=== PATIENT | female | born 1970 | race Caucasian/White ===

== ENCOUNTER 2021-06-08 22:04 | Inpatient (IN) | payer OTHER, SELFPAY ==
--- NOTE | ~2021-06-08 | CT_ITS ---
EXAMINATION: CT ANGIOGRAM OF THE CHEST WITH AND WITHOUT CONTRAST (CT PULMONARY ANGIOGRAM FOR PE) CLINICAL INFORMATION: Reason for Exam covid + worsening SOB COMPARISON: None TECHNIQUE: Prior to contrast administration, noncontrast localization images were obtained. Subsequently, multidetector volumetric imaging was performed from the thoracic inlet to below the diaphragms following the administration of 65 mL Omnipaque 350 intravenous contrast. No contrast reaction reported Sagittal, coronal, and MIP oblique sagittal reformatted images were obtained on the CT workstation, uploaded to PACS, and reviewed. This CT examination was performed using dose optimization techniques as appropriate, variously including the following: *Automated exposure control *Adjustment of mA and/or kV according to patient size (this includes techniques or standardized protocols for targeted exams where dose is matched to indication/reason for exam; i.e. extremities or head) *Use of iterative reconstruction technique Total exam dose-length product 329 mGy-cm FINDINGS: QUALITY OF STUDY/CONTRAST BOLUS: Satisfactory. PULMONARY ARTERIES: No central or segmental pulmonary emboli. THORACIC AORTA: No aneurysm or dissection. LUNG: There are bilateral peripherally predominant patchy round glass opacities. PLEURA: No pleural effusion or pneumothorax. MEDIASTINUM: Normal heart size. No pericardial effusion. No hilar or mediastinal lymphadenopathy. No evidence of septal bowing or right heart strain. CHEST WALL/AXILLA: No axillary or internal mammary lymphadenopathy. OSSEOUS STRUCTURES: No acute or suspicious osseous abnormality. UPPER ABDOMEN: Hepatic steatosis. CT/CT angio chest PE protocol IMPRESSION: * No pulmonary embolism. * Bilateral peripherally predominant patchy groundglass airspace opacities. Pattern and appearance classic for COVID pneumonitis, mild. * Hepatic steatosis. VTE: negative
[2021-06-09] VITALS (13 sets, daily range): BP systolic 104–124; BP diastolic 55–67; PULSE 61–91; RESP 17–23; TEMP 36.1–39.6; O2SAT 88–98; BMI 29.4
--- NOTE | 2021-06-09 00:11 | ECG_ITS ---
Test Reason : SOB Blood Pressure : / mmHG Vent. Rate : 093 BPM Atrial Rate : 093 BPM P-R Int : 150 ms QRS Dur : 072 ms QT Int : 330 ms P-R-T Axes : 043 -06 039 degrees QTc Int : 410 ms Normal sinus rhythm Minimal voltage criteria for LVH, may be normal variant ( R in aVL ) Borderline ECG No previous ECGs available Referred By: Annamarie Freeman Electronically Signed By:Abiodun Ho
--- NOTE | 2021-06-09 00:16 | ED_ITS ---
HPI - General Adult General Chief complaint: Upper Respiratory Symptoms Stated complaint: Low O2/Difficulty breathing Time Seen by Provider: 06/09/21 00:03 Source: patient Mode of arrival: ambulatory Limitations: no limitations History of Present Illness HPI narrative: Patient comes to emergency room complaining of shortness of breath, worsening cough. Patient states she was diagnosed with COVID approximately 1 week ago. Patient complaining of vomiting, no diarrhea. Complaining of generalized malaise Related Data Allergies Allergy/AdvReac Type Severity Reaction Status Date / Time No Known Allergies Allergy Verified 06/09/21 00:10 Review of Systems Review of Systems: Constitutional : No Weight loss, complaining of fever, chills, generalized malaise and fatigue ENT/Mouth : No Hearing loss, No Ear Pain, No Nasal Congestion, No Sinus Pain, No Hoarseness, No sore throat, No Rhinorrhea, No Swallowing Difficulty Eyes: No Eye Pain, No Swelling, No Redness, No Foreign Body, No Discharge, No Vision Changes Cardiovascular : Complaining of chest pain with coughing, no orthopnea no palpitations no edema Respiratory : Complaining of Cough, No Sputum, No Wheezing, No Smoke Exposure, complaining of worsening Dyspnea Gastrointestinal : Complaining of nausea and vomiting, No Diarrhea, No Constipation, No abdominal Pain, No Hematochezia, No Melena Genitourinary : no irregular bleeding, No Dysuria, No Urinary Frequency, No Hematuria, No Urinary Incontinence, No Urgency, No Flank Pain, No Urinary Flow Changes, No Hesitancy Musculoskeletal : No joint pain, complaining of diffuse Myalgias, No Joint Swelling Skin : No Skin Lesions, No rash Neuro : No Weakness, No Numbness, No Paresthesias, No Loss of Consciousness, No Dizziness, No Headache Psych : No Anxiety/Panic, No Depression, No SI/HI/AH/VH, No Social Issues, Heme/Lymph: No Bruising, No Bleeding,No Lymphadenopathy Endocrine : No Polyuria, No Polydipsia, No Temperature Intolerance [facility] Past Medical History Medical History (Updated 06/09/21 @ 00:19 by Annamarie Freeman MD) Hypertension Type 2 diabetes mellitus Social History Social History Patient Tobacco Use Status: Never used Tobacco Use of substances other than those prescribed or required for medical reasons: No Advance Directives: No Physical Exam Vital Signs: Vital Signs: Last Vital Signs Temp 100.2 F 06/09/21 02:42 Pulse 82 12/07/21 02:42 Resp 19 06/09/21 02:42 BP 107/55 L 06/09/21 02:42 Pulse Ox 95 06/09/21 02:42 Oxygen Flow Rate 2 06/09/21 02:34 BMI result Body Mass Index 29.4 Const: Other: Appearance: Alert. Oriented X3. Ill-appearing Eyes: Pupils equal, round and reactive to light. ENT: Pharynx normal. Neck: Normal inspection. Neck supple. No lymph nodes noted. No crepitus CVS: Normal heart rate and rhythm. Pulses normal. Normal S1 and S2 Respiratory: No respiratory distress. Breath sounds normal. No Wheezing. No rales Abdomen: Soft and nontender. No rigidity. No distention. Skin: Skin very warm to touch. Normal skin color. Normal skin turgor. Extremities: No lower extremity edema. No Lacerations. No Rash Neuro: Oriented X 3. No motor deficit. No sensory deficit. Moving all extermities. No slurred speech. Course Course Course Narrative: Patient's oxygen saturation drops to 87% on room air with exertion. Patient was given Decadron, at this time no suspicion of pneumonia or sepsis CT study for PE does not show pulmonary embolism. I discussed the patient with Dr. Reed, patient being admitted. Medical Decision Making Lab Data Result diagrams: 06/09/21 00:47 06/09/21 00:47 Labs: Lab Results 06/09/21 06/09/21 06/09/21 Range/Units 00:47 00:47 00:47 WBC 8.2 (4.8-10.8) X10*3/uL RBC 4.18 L (4.20-5.50) X10*6/uL Hgb 12.0 (12.0-16.0) g/dl Hct 36.4 L (37.0-47.0) % MCV 87.1 (80.0-98.0) fL MCH 28.7 (27.0-33.0) pg MCHC 33.0 (31.0-35.0) g/dl RDW 11.8 (11.0-16.0) % Plt Count 322 (160-400) X10*3/uL MPV 9.1 L (9.4-12.3) fL Immature Gran % (Auto) 0.4 (0.0-0.4) % Neut % (Auto) 87.5 H (45-73) % Lymph % (Auto) 10.1 L (20-40) % [place] % (Auto) 1.9 L (2-11) % Eos % (Auto) 0.0 (0-4) % Baso % (Auto) 0.1 (0-2) % Lymph # (Auto) 0.8 L (1.2-4.9) X10*3/uL [place] # (Auto) 0.2 (0.1-1.2) X10*3/uL Eos # (Auto) 0.0 (0.0-0.4) X10*3/uL Baso # (Auto) 0.0 (0.0-0.2) X10*3/uL Abs Immat Gran (auto) 0.03 (0.00-0.03) X10*3/uL Absolute Neuts (auto) 7.2 (2.0-8.3) x10*3/uL Absolute Nucleated RBC 0.000 (0.0-0.012) X10*3/uL Nucleated RBC % (auto) 0.0 (0.0-0.2) /100WBC Smear Tech's Comments VERIFIED PT 13.4 H (9.9-13.0) SEC INR 1.2 H (0.9-1.1) D-Dimer High Sensitivty 380 NG/ML Sodium 137 (135-145) mmol/L Potassium 4.6 (3.3-5.1) mmol/L Chloride 101 (96-108) mmol/L Carbon Dioxide 23 (22-29) mmol/L Anion Gap 18 (12-20) BUN 14 (9-16) mg/dL Creatinine 0.71 (0.5-1.4) mg/dL Estim Creat Clear Calc 87.6 Estimated GFR > 60 POC Glucose (60-115) mg/dL Random Glucose 167 H (60-115) mg/dL Lactic Acid (0.5-2.0) mmol/L Calcium 8.7 (8.4-10.2) mg/dL Total Bilirubin 0.6 (0.0-1.0) mg/dL Direct Bilirubin 0.2 (0.0-0.5) mg/dL AST 31 (5-31) U/L ALT 20 (0-31) U/L Alkaline Phosphatase 83 (39-117) U/L Troponin I High Sens (<3.5-17.0) ng/L B-Natriuretic Peptide (<100) pg/mL Total Protein 7.3 (6.5-8.0) g/dL Albumin 3.7 (3.5-5.0) g/dL Urine Color Urine Appearance Urine pH (5.0-8.0) Ur Specific [place] (1.005-1.025) Urine Protein (NEG-TRACE) MG/DL Urine Glucose (UA) (NEG) MG/DL Urine Ketones (NEG) MG/DL Urine Blood (NEG) Urine Nitrite (NEG) Ur Leukocyte Esterase (NEG) Urine RBC (0) /HPF Urine WBC (0-4) /HPF Ur Squamous Epith Cells /LPF Urine Bacteria /LPF COVID-19 ([facility]) (Negative) COVID-19 Clin Com 06/09/21 06/09/21 06/09/21 Range/Units 00:47 00:47 00:47 WBC (4.8-10.8) X10*3/uL RBC (4.20-5.50) X10*6/uL Hgb (12.0-16.0) g/dl Hct (37.0-47.0) % MCV (80.0-98.0) fL MCH (27.0-33.0) pg MCHC (31.0-35.0) g/dl RDW (11.0-16.0) % Plt Count (160-400) X10*3/uL MPV (9.4-12.3) fL Immature Gran % (Auto) (0.0-0.4) % Neut % (Auto) (45-73) % Lymph % (Auto) (20-40) % [place] % (Auto) (2-11) % Eos % (Auto) (0-4) % Baso % (Auto) (0-2) % Lymph # (Auto) (1.2-4.9) X10*3/uL [place] # (Auto) (0.1-1.2) X10*3/uL Eos # (Auto) (0.0-0.4) X10*3/uL Baso # (Auto) (0.0-0.2) X10*3/uL Abs Immat Gran (auto) (0.00-0.03) X10*3/uL Absolute Neuts (auto) (2.0-8.3) x10*3/uL Absolute Nucleated RBC (0.0-0.012) X10*3/uL Nucleated RBC % (auto) (0.0-0.2) /100WBC Smear Tech's Comments PT (9.9-13.0) SEC INR (0.9-1.1) D-Dimer High Sensitivty NG/ML Sodium (135-145) mmol/L Potassium (3.3-5.1) mmol/L Chloride (96-108) mmol/L Carbon Dioxide (22-29) mmol/L Anion Gap (12-20) BUN (9-16) mg/dL Creatinine (0.5-1.4) mg/dL Estim Creat Clear Calc Estimated GFR POC Glucose (60-115) mg/dL Random Glucose (60-115) mg/dL Lactic Acid 0.9 (0.5-2.0) mmol/L Calcium (8.4-10.2) mg/dL Total Bilirubin (0.0-1.0) mg/dL Direct Bilirubin (0.0-0.5) mg/dL AST (5-31) U/L ALT (0-31) U/L Alkaline Phosphatase (39-117) U/L Troponin I High Sens < 3.5 (<3.5-17.0) ng/L B-Natriuretic Peptide < 10 (<100) pg/mL Total Protein (6.5-8.0) g/dL Albumin (3.5-5.0) g/dL Urine Color Urine Appearance Urine pH (5.0-8.0) Ur Specific [place] (1.005-1.025) Urine Protein (NEG-TRACE) MG/DL Urine Glucose (UA) (NEG) MG/DL Urine Ketones (NEG) MG/DL Urine Blood (NEG) Urine Nitrite (NEG) Ur Leukocyte Esterase (NEG) Urine RBC (0) /HPF Urine WBC (0-4) /HPF Ur Squamous Epith Cells /LPF Urine Bacteria /LPF COVID-19 ([facility]) Positive A (Negative) COVID-19 Clin Com See Note 06/09/21 06/09/21 Range/Units 01:36 01:48 WBC (4.8-10.8) X10*3/uL RBC (4.20-5.50) X10*6/uL Hgb (12.0-16.0) g/dl Hct (37.0-47.0) % MCV (80.0-98.0) fL MCH (27.0-33.0) pg MCHC (31.0-35.0) g/dl RDW (11.0-16.0) % Plt Count (160-400) X10*3/uL MPV (9.4-12.3) fL Immature Gran % (Auto) (0.0-0.4) % Neut % (Auto) (45-73) % Lymph % (Auto) (20-40) % [place] % (Auto) (2-11) % Eos % (Auto) (0-4) % Baso % (Auto) (0-2) % Lymph # (Auto) (1.2-4.9) X10*3/uL [place] # (Auto) (0.1-1.2) X10*3/uL Eos # (Auto) (0.0-0.4) X10*3/uL Baso # (Auto) (0.0-0.2) X10*3/uL Abs Immat Gran (auto) (0.00-0.03) X10*3/uL Absolute Neuts (auto) (2.0-8.3) x10*3/uL Absolute Nucleated RBC (0.0-0.012) X10*3/uL Nucleated RBC % (auto) (0.0-0.2) /100WBC Smear Tech's Comments PT (9.9-13.0) SEC INR (0.9-1.1) D-Dimer High Sensitivty NG/ML Sodium (135-145) mmol/L Potassium (3.3-5.1) mmol/L Chloride (96-108) mmol/L Carbon Dioxide (22-29) mmol/L Anion Gap (12-20) BUN (9-16) mg/dL Creatinine (0.5-1.4) mg/dL Estim Creat Clear Calc Estimated GFR POC Glucose 145 H (60-115) mg/dL Random Glucose (60-115) mg/dL Lactic Acid (0.5-2.0) mmol/L Calcium (8.4-10.2) mg/dL Total Bilirubin (0.0-1.0) mg/dL Direct Bilirubin (0.0-0.5) mg/dL AST (5-31) U/L ALT (0-31) U/L Alkaline Phosphatase (39-117) U/L Troponin I High Sens (<3.5-17.0) ng/L B-Natriuretic Peptide (<100) pg/mL Total Protein (6.5-8.0) g/dL Albumin (3.5-5.0) g/dL Urine Color YELLOW Urine Appearance CLEAR Urine pH 6.5 (5.0-8.0) Ur Specific [place] 1.010 (1.005-1.025) Urine Protein NEG (NEG-TRACE) MG/DL Urine Glucose (UA) >=1000 H (NEG) MG/DL Urine Ketones 40 (NEG) MG/DL Urine Blood NEG (NEG) Urine Nitrite NEG (NEG) Ur Leukocyte Esterase NEG (NEG) Urine RBC 1-4 (0) /HPF Urine WBC 1-4 (0-4) /HPF Ur Squamous Epith Cells 1+ /LPF Urine Bacteria 1+ /LPF COVID-19 ([facility]) (Negative) COVID-19 Clin Com Imaging Data CTA for PE: Radiologist's impression: FINDINGS: QUALITY OF STUDY/CONTRAST BOLUS: Satisfactory. PULMONARY ARTERIES: No central or segmental pulmonary emboli.? THORACIC AORTA: No aneurysm or dissection. LUNG: There are bilateral peripherally predominant patchy round glass opacities. PLEURA: No pleural effusion or pneumothorax. MEDIASTINUM: Normal heart size.? No pericardial effusion.? No hilar or mediastinal lymphadenopathy.? No evidence of septal bowing or right heart strain. CHEST WALL/AXILLA: No axillary or internal mammary lymphadenopathy. OSSEOUS STRUCTURES: No acute or suspicious osseous abnormality.? UPPER ABDOMEN: Hepatic steatosis. CT/CT angio chest PE protocol IMPRESSION: *? No pulmonary embolism. *? Bilateral peripherally predominant patchy groundglass airspace opacities. Pattern and appearance classic for COVID pneumonitis, mild. *? Hepatic steatosis. ? VTE: negative Discharge Plan Discharge Clinical Impression: COVID-19, Hypoxia Patient Disposition: Admitted As Inpatient
[2021-06-09] MEDS: 0.9 % Sodium Chloride 1,000 ML 999 ML IVCONT (00:46)
[2021-06-09] MEDS: ondansetron HCL 4 MG/2 ML VIAL IVPUSH (00:46)
[2021-06-09 01:00] LABS: Basophils Percent Auto 0.1 % (0-2); Hematocrit 36.4 % (37.0-47.0); Imm Gran Abs Auto 0.03 X10*3/uL (0.00-0.03); Imm Gran Pct Auto 0.4 % (0.0-0.4); Lymphocytes Absolute Auto 0.8 X10*3/uL (1.2-4.9); Lymphocytes Percent Auto 10.1 % (20-40); MANUAL DIFF FLAG SCAN; Mean Corpuscular Hemoglobin 28.7 pg (27.0-33.0); Mean Corpuscular Volume 87.1 fL (80.0-98.0); Mean Platelet Volume 9.1 fL (9.4-12.3); Monocytes Absolute Auto 0.2 X10*3/uL (0.1-1.2); Monocytes Percent Auto 1.9 % (2-11); Neutrophils Absolute Auto 7.2 x10*3/uL (2.0-8.3); Neutrophils Percent Auto 87.5 % (45-73); Platelet Count 322 X10*3/uL (160-400); Red Blood Count 4.18 X10*6/uL (4.20-5.50); Red Cell Distribution Width 11.8 % (11.0-16.0); SCAN SMEAR FLAG 1; White Blood Count 8.2 X10*3/uL (4.8-10.8)
[2021-06-09 01:05] LABS: INTERNATIONAL NORM RATIO 1.2 (0.9-1.1); Prothrombin Time 13.4 SEC (9.9-13.0)
[2021-06-09 01:07] LABS: D Dimer High Sensitivity 380 NG/ML
[2021-06-09 01:11] LABS: Lactic Acid 0.9 mmol/L (0.5-2.0)
[2021-06-09 01:16] LABS: Alanine Aminotransferase 20 U/L (0-31); Albumin Level 3.7 g/dL (3.5-5.0); Alkaline Phosphatase 83 U/L (39-117); Anion Gap 18 (12-20); Aspartate Amino Transferase 31 U/L (5-31); Bilirubin Direct 0.2 mg/dL (0.0-0.5); Bilirubin Total 0.6 mg/dL (0.0-1.0); Blood Urea Nitrogen 14 mg/dL (9-16); Calcium 8.7 mg/dL (8.4-10.2); Carbon Dioxide 23 mmol/L (22-29); Chloride 101 mmol/L (96-108); Creatinine Clr Calc Pharmacy 87.6; Estimated Glomerular Filt Rate > 60; Glucose Random 167 mg/dL (60-115); Potassium 4.6 mmol/L (3.3-5.1); Sodium 137 mmol/L (135-145); Total Protein 7.3 g/dL (6.5-8.0)
[2021-06-09 01:20] LABS: B Type Natriuretic Peptide < 10 pg/mL (<100); Troponin-I High Sensitivity < 3.5 ng/L (<3.5-17.0)
[2021-06-09] MEDS: Acetaminophen 325 MG TABLET 650 MG PO ×2 (01:20→16:53)
[2021-06-09 01:23] LABS: SLIDE REVIEW VERIFIED
[2021-06-09 01:25] LABS: COVID-19 Test Positive (Negative)
[2021-06-09 01:48] LABS: Glucose, Whole Blood 145 mg/dL (60-115)
[2021-06-09 01:55] LABS: Appearance Urine CLEAR; Color Urine YELLOW; Glucose Urine UA >=1000 MG/DL (NEG); Leukocyte Esterase Urine NEG (NEG); Nitrite Urine NEG (NEG); PH 6.5 (5.0-8.0); Urine Blood NEG (NEG); Urine Ketones 40 MG/DL (NEG); Urine Protein NEG (NEG-TRACE)
[2021-06-09 02:05] LABS: Bacteria Urine 1+ /LPF; Squamous Epithelial Cell Urine 1+ /LPF
[2021-06-09] MEDS: iohexoL 350 MG/ML 100 ML INFUS..BTL 65 ML IV (02:34)
--- NOTE | 2021-06-09 03:19 | P.HPHOSP_ITS ---
History of Present Illness Date of Service: 06/09/21 Chief Complaint: shortness of breath 50-year-old female with a past medical history of hypertension, hyperlipidemia, diabetes presented to the hospital with a chief complaint of shortness of breath. Patient reported that she was COVID-19 positive about 1 week ago; has been doing well but lately has been becoming more and more short of breath, generalized w eakness and vomiting; denies any diarrhea; denies any abdominal pain. Mentioned she has more shortness of breath on exertion. Complains of dry cough. Denies any foreign production. Denies any numbness tingling or focal weakness. Denies any chest pain palpitations lightheadedness. Denies any urinary symptoms. Review of all other systems is negative except mentioned above ER course: Per ER team noted that the patient is hypoxic to 87% on room air; CT chest showed no evidence of pulmonary embolism; given dexamethasone. Admitted to the hospital for further management. [facility] Medical History (Updated 06/09/21 @ 03:20 by Onofre Reed MD) Hypertension Type 2 diabetes mellitus Pertinent family history: reviewed Social History Patient Tobacco Use Status: Never used Tobacco Use of substances other than those prescribed or required for medical reasons: No Advance Directives: No Meds Allergies Allergy/AdvReac Type Severity Reaction Status Date / Time No Known Allergies Allergy Verified 06/09/21 00:10 Active Medications: Current Medications Acetaminophen (Acetaminophen 325 Mg Tablet) 650 mg PO Q6H PRN PRN Reason: Pain, Mild (Pain Scale 1-3) Dexamethasone (Dexamethasone 6 Mg Tablet) 6 mg PO DAILY [facility] Dextrose (Dextrose 50 % 25 Gm/50 Ml Vial) 25 gm IVPUSH Q15M PRN; Protocol PRN Reason: per Hypoglycemia Standing Ord. Enoxaparin Sodium (Enoxaparin Sodium 40 Mg/0.4 Ml Syringe) 40 mg SUBCUT Q24H NAOMIE Famotidine (Famotidine 20 Mg Tablet) 20 mg PO BID NAOMIE Glucose (Glucose Gel 15 Gm Gel..Gram.) 15 gm PO Q15M PRN; Protocol PRN Reason: per Hypoglycemia Standing Ord. Insulin Human Lispro (Insulin Lispro 100 Unit/Ml 3 Ml Vial) 0 unit SUBCUT QIDACHS NAOMIE; Protocol Melatonin (Melatonin 3 Mg Tablet) 6 mg PO BEDTIME PRN PRN Reason: Insomnia Morphine Sulfate (Morphine Sulfate 4 Mg/Ml Cartridge) 1 mg IVPUSH Q4H PRN; Protocol PRN Reason: Pain, SOB Senna (Sennosides 8.6 Mg Tablet) 17.2 mg PO BEDTIME PRN PRN Reason: Constipation Sodium Chloride (0.9 % Sodium Chloride Flush 3 Ml Syringe) 3 ml IVFLUSH QSHIFT NAOMIE Physical Exam Vital Signs and Narrative: Vital Signs: Last Vital Signs Temp 100.2 F 06/09/21 02:42 Pulse 80 06/09/21 03:14 Resp 18 06/09/21 03:14 BP 104/55 L 06/09/21 03:14 Pulse Ox 94 06/09/21 03:14 Oxygen Flow Rate 2 06/09/21 02:34 BMI result Body Mass Index 29.4 Gen: Appears be in no acute distress. speaks in full sentences. Not in respiratory distress. On supplemental oxygen. Saturating 94% on 2 L. HEENT: NCAT, Moist mucosa. Pulmonary: Coarse breath sounds, fair air entry CVS: Normal S1-S2 Abdomen: BS+, Soft, Nontender Extremities: Warm well perfused Neuro: Alert and awake. Results Labs CBC and Chem 7: 06/09/21 00:47 06/09/21 00:47 Labs: Laboratory Results - last 24 hr 06/09/21 06/09/21 06/09/21 00:47 00:47 00:47 MCV 87.1 MCH 28.7 MCHC 33.0 RDW 11.8 Plt Count 322 MPV 9.1 L Immature Gran % (Auto) 0.4 Neut % (Auto) 87.5 H Lymph % (Auto) 10.1 L [place] % (Auto) 1.9 L Eos % (Auto) 0.0 Baso % (Auto) 0.1 Lymph # (Auto) 0.8 L [place] # (Auto) 0.2 Eos # (Auto) 0.0 Baso # (Auto) 0.0 Abs Immat Gran (auto) 0.03 Absolute Neuts (auto) 7.2 Absolute Nucleated RBC 0.000 Nucleated RBC % (auto) 0.0 Smear Tech's Comments VERIFIED PT 13.4 H INR 1.2 H D-Dimer High Sensitivty 380 Anion Gap 18 Estim Creat Clear Calc 87.6 Estimated GFR > 60 POC Glucose Random Glucose 167 H Lactic Acid Calcium 8.7 Total Bilirubin 0.6 Direct Bilirubin 0.2 AST 31 ALT 20 Alkaline Phosphatase 83 Troponin I High Sens B-Natriuretic Peptide Total Protein 7.3 Albumin 3.7 Urine Color Urine Appearance Urine pH Ur Specific [place] Urine Protein Urine Glucose (UA) Urine Ketones Urine Blood Urine Nitrite Ur Leukocyte Esterase Urine RBC Urine WBC Ur Squamous Epith Cells Urine Bacteria COVID-19 ([facility]) COVID-19 Clin Com 06/09/21 06/09/21 06/09/21 00:47 00:47 00:47 MCV MCH MCHC RDW Plt Count MPV Immature Gran % (Auto) Neut % (Auto) Lymph % (Auto) [place] % (Auto) Eos % (Auto) Baso % (Auto) Lymph # (Auto) [place] # (Auto) Eos # (Auto) Baso # (Auto) Abs Immat Gran (auto) Absolute Neuts (auto) Absolute Nucleated RBC Nucleated RBC % (auto) Smear Tech's Comments PT INR D-Dimer High Sensitivty Anion Gap Estim Creat Clear Calc Estimated GFR POC Glucose Random Glucose Lactic Acid 0.9 Calcium Total Bilirubin Direct Bilirubin AST ALT Alkaline Phosphatase Troponin I High Sens < 3.5 B-Natriuretic Peptide < 10 Total Protein Albumin Urine Color Urine Appearance Urine pH Ur Specific [place] Urine Protein Urine Glucose (UA) Urine Ketones Urine Blood Urine Nitrite Ur Leukocyte Esterase Urine RBC Urine WBC Ur Squamous Epith Cells Urine Bacteria COVID-19 ([facility]) Positive A COVID-19 Clin Com See Note 06/09/21 06/09/21 01:36 01:48 MCV MCH MCHC RDW Plt Count MPV Immature Gran % (Auto) Neut % (Auto) Lymph % (Auto) [place] % (Auto) Eos % (Auto) Baso % (Auto) Lymph # (Auto) [place] # (Auto) Eos # (Auto) Baso # (Auto) Abs Immat Gran (auto) Absolute Neuts (auto) Absolute Nucleated RBC Nucleated RBC % (auto) Smear Tech's Comments PT INR D-Dimer High Sensitivty Anion Gap Estim Creat Clear Calc Estimated GFR POC Glucose 145 H Random Glucose Lactic Acid Calcium Total Bilirubin Direct Bilirubin AST ALT Alkaline Phosphatase Troponin I High Sens B-Natriuretic Peptide Total Protein Albumin Urine Color YELLOW Urine Appearance CLEAR Urine pH 6.5 Ur Specific [place] 1.010 Urine Protein NEG Urine Glucose (UA) >=1000 H Urine Ketones 40 Urine Blood NEG Urine Nitrite NEG Ur Leukocyte Esterase NEG Urine RBC 1-4 Urine WBC 1-4 Ur Squamous Epith Cells 1+ Urine Bacteria 1+ COVID-19 ([facility]) COVID-19 Clin Com Imaging Radiologist's Impressions: Impressions Chest CTA 06/09/21 02:25 IMPRESSION: * No pulmonary embolism. * Bilateral peripherally predominant patchy groundglass airspace opacities. Pattern and appearance classic for COVID pneumonitis, mild. * Hepatic steatosis. VTE: negative Assessment and Plan (1) SARS-CoV-2 positive: Status: Acute (2) Hypoxia: Status: Acute (3) Type 2 diabetes mellitus: Status: Acute 50-year-old female with a past medical history of hypertension, hyperlipidemia, diabetes presented to the hospital with a chief complaint of shortness of breath. The patient was COVID-19 positive about 1 week ago. No hypoxic to 87% on room air. Admitted for further management. Acute hypoxic respiratory failure: In the setting of COVID-19 infection. Placed on supplemental oxygen. Not in respiratory distress. Supportive care. COVID-19 infection: Patient started on dexamethasone 6 mg daily. Will consult ID for further recommendations. History of hypertension: Patient's blood pressure on the soft side. Will hold home lisinopril. History of hyperlipidemia: Continue home atorvastatin History of diabetes: Insulin sliding scale DVT prophylaxis: Lovenox Code status: Full code Quality Stroke Does the patient have a stroke diagnosis?: No VTE Prior VTE?: No VTE Risk Level:: Medical - moderate - high VTE Device Contraindication: Treatment Not Indicated VTE Drug Contraindication: N/A - Med Ordered
[2021-06-09] MEDS: dexAMETHasone sod phosphate 4 MG/ML VIAL 6 MG IVPUSH (03:34)
[2021-06-09] MEDS: Morphine Sulfate 4 MG/ML CARTRIDGE 1 MG IVPUSH ×2 (03:56→08:02)
[2021-06-09] MEDS: Enoxaparin Sodium 40 MG/0.4 ML SYRINGE SUBCUT (03:57)
--- NOTE | 2021-06-09 04:01 | PC.NURSE ---
walk test, walking around in room desat. medicated per mar
[2021-06-09] MEDS: 0.9 % Sodium Chloride Flush 3 ML SYRINGE IVFLUSH ×3 (07:34→21:44)
[2021-06-09 07:39] LABS: Basophils Percent Auto 0.1 % (0-2); Hematocrit 36.8 % (37.0-47.0); Hemoglobin 11.9 g/dl (12.0-16.0); Imm Gran Abs Auto 0.04 X10*3/uL (0.00-0.03); Imm Gran Pct Auto 0.5 % (0.0-0.4); Lymphocytes Absolute Auto 1.1 X10*3/uL (1.2-4.9); Lymphocytes Percent Auto 13.5 % (20-40); MANUAL DIFF FLAG SCAN; Mean Corpuscular HGB Conc 32.3 g/dl (31.0-35.0); Mean Corpuscular Hemoglobin 28.9 pg (27.0-33.0); Mean Corpuscular Volume 89.3 fL (80.0-98.0); Monocytes Absolute Auto 0.1 X10*3/uL (0.1-1.2); Monocytes Percent Auto 1.6 % (2-11); Neutrophils Absolute Auto 6.8 x10*3/uL (2.0-8.3); Neutrophils Percent Auto 84.3 % (45-73); Platelet Count 332 X10*3/uL (160-400); Red Blood Count 4.12 X10*6/uL (4.20-5.50); Red Cell Distribution Width 11.9 % (11.0-16.0); SCAN SMEAR FLAG 1; White Blood Count 8.1 X10*3/uL (4.8-10.8)
[2021-06-09] MEDS: Famotidine 20 MG TABLET PO ×2 (07:40→21:44)
[2021-06-09] MEDS: Aspirin 81 MG TAB.CHEW PO (07:40)
[2021-06-09] MEDS: dexAMETHasone 6 MG TABLET PO (07:40)
[2021-06-09 07:45] LABS: Glucose, Whole Blood 142 mg/dL (60-115)
--- NOTE | 2021-06-09 07:52 | PC.NURSE ---
Spoke to daughter Yvonne (with permission of pt), updated on plan and status of pt. Med list obtained from daughter and faxed to pharmacy.
--- NOTE | 2021-06-09 07:55 | PHA.MEDREC ---
Pharmacy Consult ? Medication Reconciliation Pharmacy has completed the medication reconciliation.
[2021-06-09 08:02] LABS: Anion Gap 17 (12-20); Blood Urea Nitrogen 14 mg/dL (9-16); Calcium 8.4 mg/dL (8.4-10.2); Carbon Dioxide 22 mmol/L (22-29); Chloride 106 mmol/L (96-108); Creatinine Clr Calc Pharmacy 90.2; Estimated Glomerular Filt Rate > 60; Glucose Random 151 mg/dL (60-115); Potassium 4.8 mmol/L (3.3-5.1); Sodium 140 mmol/L (135-145)
--- NOTE | 2021-06-09 10:04 | PM.EVENT ---
Event Note Date of Service: 06/09/21 Event Note: Pt admitted this morning with covid with hypoxia, treatment plan per H and P from this morning. Wean O2 as tolerated
[2021-06-09 12:09] LABS: Glucose, Whole Blood 182 mg/dL (60-115)
[2021-06-09 14:50] LABS: Glucose, Whole Blood 236 mg/dL (60-115)
[2021-06-09] MEDS: Insulin Lispro 100 UNIT/ML 3 ML VIAL SUBCUT ×3 (14:53→21:44)
[2021-06-09 15:45] LABS: Glucose, Whole Blood 372 mg/dL (60-115)
[2021-06-09 19:00] LABS: Glucose, Whole Blood 355 mg/dL (60-115)
[2021-06-09 20:53] LABS: Glucose, Whole Blood 283 mg/dL (60-115)
[2021-06-09] MEDS: Atorvastatin Calcium 80 MG TABLET PO (21:44)
[2021-06-10] MEDS: Benzonatate 100 MG CAPSULE PO ×3 (01:49→20:38)
[2021-06-10 03:02] VITALS: BP 106/53; PULSE 71; RESP 16; TEMP 36.7; O2SAT 94
[2021-06-10] MEDS: Enoxaparin Sodium 40 MG/0.4 ML SYRINGE SUBCUT (06:14)
[2021-06-10 07:19] VITALS: BP 120/62; PULSE 82; RESP 22; TEMP 37.8; O2SAT 92
[2021-06-10 07:50] LABS: Glucose, Whole Blood 169 mg/dL (60-115)
[2021-06-10] MEDS: Aspirin 81 MG TAB.CHEW PO (08:14)
[2021-06-10] MEDS: Famotidine 20 MG TABLET PO ×2 (08:14→20:38)
[2021-06-10] MEDS: Insulin Lispro 100 UNIT/ML 3 ML VIAL SUBCUT ×4 (08:14→20:39)
[2021-06-10] MEDS: dexAMETHasone 6 MG TABLET PO (08:14)
[2021-06-10] MEDS: 0.9 % Sodium Chloride Flush 3 ML SYRINGE IVFLUSH ×2 (08:14→15:53)
[2021-06-10] MEDS: Acetaminophen 325 MG TABLET 650 MG PO ×2 (08:19→20:38)
[2021-06-10 10:29] VITALS: TEMP 37.6
[2021-06-10 10:54] VITALS: BP 119/64; PULSE 68; RESP 20; TEMP 37; O2SAT 95
[2021-06-10 11:18] LABS: Glucose, Whole Blood 224 mg/dL (60-115)
--- NOTE | 2021-06-10 11:30 | MHC.CM.PN ---
spoke with pt who is covid area via telephone pt explains that prior to admission she was independent lives with s/o she does mot expect to need service when dcd per rounds pt may be dcd tomorrow
--- NOTE | 2021-06-10 11:59 | HO.PM.IMPN ---
Subjective Subjective Date of Service: 06/10/21 Interval History: Seen in f/u for acute hypoxic respiratory failure due to covid, overall getting better still coughing alot, hypoxia seem better on just 2 liters Review of Systems No fever cough sob Physical Exam Vital Signs: Vital Signs: Last Vital Signs Temp 98.6 F 06/10/21 10:54 Pulse 68 06/10/21 10:54 Resp 20 06/10/21 10:54 BP 119/64 06/10/21 10:54 Pulse Ox 95 06/10/21 10:54 Oxygen Flow Rate 2 06/09/21 11:20 BMI result Body Mass Index 29.4 Const: Other: General: AO X 3, no acute distress Resp: CTA bilateral, no accessory muscle use CVS: S1,S2,RRR GI: +BS, NT, no distention Skin: No rash Neuro: motor grossly intact Psych: appropriate affect Objective Data Active Medications Acetaminophen (Acetaminophen 325 Mg Tablet) 650 mg PO Q6H PRN PRN Reason: Pain, Mild (Pain Scale 1-3) Last Admin: 06/10/21 08:19 Dose: 650 mg Documented by: SHADY Aspirin (Aspirin 81 Mg Tab.Chew) 81 mg PO DAILY [facility] Last Admin: 06/10/21 08:14 Dose: 81 mg Documented by: SHADY Atorvastatin Calcium (Atorvastatin Calcium 80 Mg Tablet) 80 mg PO BEDTIME [facility] Last Admin: 06/09/21 21:44 Dose: 80 mg Documented by: JAMI Benzonatate (Benzonatate 100 Mg Capsule) 100 mg PO TID PRN PRN Reason: Cough Last Admin: 06/10/21 11:57 Dose: 100 mg Documented by: SHADY Benzonatate (Benzonatate 100 Mg Capsule) 100 mg PO TID PRN PRN Reason: Cough Dexamethasone (Dexamethasone 6 Mg Tablet) 6 mg PO DAILY [facility] Last Admin: 06/10/21 08:14 Dose: 6 mg Documented by: SHADY Dextrose (Dextrose 50 % 25 Gm/50 Ml Vial) 25 gm IVPUSH Q15M PRN; Protocol PRN Reason: per Hypoglycemia Standing Ord. Enoxaparin Sodium (Enoxaparin Sodium 40 Mg/0.4 Ml Syringe) 40 mg SUBCUT Q24H [facility] Last Admin: 06/10/21 06:14 Dose: 40 mg Documented by: JAMI Famotidine (Famotidine 20 Mg Tablet) 20 mg PO BID [facility] Last Admin: 06/10/21 08:14 Dose: 20 mg Documented by: SHADY Glucose (Glucose Gel 15 Gm Gel..Gram.) 15 gm PO Q15M PRN; Protocol PRN Reason: per Hypoglycemia Standing Ord. Insulin Human Lispro (Insulin Lispro 100 Unit/Ml 3 Ml Vial) 0 [facility]; Protocol Last Admin: 06/10/21 11:51 Dose: 4 unit Documented by: SHADY Melatonin (Melatonin 3 Mg Tablet) 6 mg PO BEDTIME PRN PRN Reason: Insomnia Morphine Sulfate (Morphine Sulfate 4 Mg/Ml Cartridge) 1 mg IVPUSH Q4H PRN; Protocol PRN Reason: Pain, SOB Last Admin: 06/09/21 08:02 Dose: 1 mg Documented by: BRAYDEN Pharmacy Consult (Consult Rx Perform Med Rec) 1 each MISCELLANE ONCE PRN PRN Reason: Consult order Senna (Sennosides 8.6 Mg Tablet) 17.2 mg PO BEDTIME PRN PRN Reason: Constipation Sodium Chloride (0.9 % Sodium Chloride Flush 3 Ml Syringe) 3 ml IVFLUSH [facility] Last Admin: 06/10/21 08:14 Dose: 3 ml Documented by: SHADY Labs CBC & Chem 7: 06/09/21 07:33 06/09/21 07:33 Labs: Laboratory Results - last 24 hr 06/09/21 06/09/21 06/09/21 12:05 14:46 15:42 POC Glucose 182 H 236 H 372 H* 06/09/21 06/09/21 06/10/21 18:56 20:49 07:23 POC Glucose 355 H* 283 H 169 H 06/10/21 11:13 POC Glucose 224 H Microbiology Microbiology Results: Microbiology 06/09/21 00:47 Blood Culture - Preliminary Blood - Venous No growth after 24 hours. 06/09/21 00:47 Blood Culture - Preliminary Blood - Venous No growth after 24 hours. Assessment and Plan (1) SARS-CoV-2 positive: Status: Acute (2) Hypoxia: Status: Acute (3) Type 2 diabetes mellitus: Status: Acute (4) HLD (hyperlipidemia): Status: Acute Assessment and Plan: 50-year-old female w/ acute hypoxic respiratoroy failure due to covid PNA, tested for covid 06/01, result on 06/03 Acute hypoxic resp failure Covid 19 PNA -continue O2 and wean as rené -IV steroid -I believe she's out of window for remdesevir efficancy, will check with ID -Sumptomatic cough treatment -robitussin and Tessalon for cough HTN--resume Lisinopril HLD--Lipitor Diabetes--restart Metformin, SSI DVT prophylaxis: Lovenox Code status: Full code Quality Stroke Does the patient have a stroke diagnosis?: No VTE Prior VTE?: No VTE Risk Level:: Medical - moderate - high VTE Device Contraindication: Treatment Not Indicated VTE Drug Contraindication: N/A - Med Ordered
[2021-06-10] MEDS: lisinopriL 10 MG TABLET PO (13:28)
[2021-06-10 16:00] VITALS: BP 136/64; PULSE 77; RESP 18; TEMP 37.1; O2SAT 92
[2021-06-10 16:06] LABS: Glucose, Whole Blood 237 mg/dL (60-115)
[2021-06-10] MEDS: metFORMIN HCl 1,000 MG TABLET 1000 MG PO (16:41)
[2021-06-10 20:00] VITALS: BP 119/63; PULSE 68; RESP 19; TEMP 37.9; O2SAT 97
[2021-06-10 20:18] LABS: Glucose, Whole Blood 283 mg/dL (60-115)
[2021-06-10] MEDS: Atorvastatin Calcium 80 MG TABLET PO (20:38)
[2021-06-10] MEDS: Albuterol Sulfate 90 MCG 8 GM INHALER 1 PUFF INHALE (20:59)
[2021-06-11] VITALS (8 sets, daily range): BP systolic 100–121; BP diastolic 54–60; PULSE 53–73; RESP 18–20; TEMP 36.1–37.1; O2SAT 91–96
[2021-06-11] MEDS: 0.9 % Sodium Chloride Flush 3 ML SYRINGE IVFLUSH ×4 (00:39→20:37)
[2021-06-11] MEDS: Enoxaparin Sodium 40 MG/0.4 ML SYRINGE SUBCUT (03:45)
[2021-06-11 07:19] LABS: Glucose, Whole Blood 206 mg/dL (60-115)
[2021-06-11] MEDS: Aspirin 81 MG TAB.CHEW PO (07:48)
[2021-06-11] MEDS: lisinopriL 10 MG TABLET PO (07:49)
[2021-06-11] MEDS: Insulin Lispro 100 UNIT/ML 3 ML VIAL SUBCUT ×4 (07:49→20:37)
[2021-06-11] MEDS: Insulin Glargine,Hum.rec.anlog 100 UNIT/ML 10 ML VIAL 30 UNIT SUBCUT (07:49)
[2021-06-11] MEDS: dexAMETHasone 6 MG TABLET PO (07:49)
[2021-06-11] MEDS: metFORMIN HCl 1,000 MG TABLET 1000 MG PO ×2 (07:49→16:43)
[2021-06-11] MEDS: Famotidine 20 MG TABLET PO ×2 (07:50→20:37)
[2021-06-11 11:20] LABS: Glucose, Whole Blood 273 mg/dL (60-115)
--- NOTE | 2021-06-11 12:26 | HO.PM.IMPN ---
Subjective Subjective Date of Service: 06/11/21 Interval History: Seen in f/u for acute hypoxic respiratory failure due to covid, O2 is good on 2 liters, persitent cough with tessalon Review of Systems low grade fever overnight cough sob Physical Exam Vital Signs: Vital Signs: Last Vital Signs Temp 97.6 F 06/11/21 11:15 Pulse 73 06/11/21 11:15 Resp 20 06/11/21 11:15 BP 105/55 L 06/11/21 11:15 Pulse Ox 95 06/11/21 11:15 Oxygen Flow Rate 2 06/09/21 11:20 BMI result Body Mass Index 29.4 Const: Other: General: AO X 3, no acute distress Resp: CTA bilateral, no accessory muscle use CVS: S1,S2,RRR GI: +BS, NT, no distention Skin: No rash Neuro: motor grossly intact Psych: appropriate affect Objective Data Active Medications Acetaminophen (Acetaminophen 325 Mg Tablet) 650 mg PO Q6H PRN PRN Reason: Pain, Mild (Pain Scale 1-3) Last Admin: 06/10/21 20:38 Dose: 650 mg Documented by: DONTE Albuterol Sulfate (Albuterol Sulfate 90 Mcg 8 Gm Inhaler) 1 puff INHALE Q4H PRN PRN Reason: RESPIRATORY DISTRESS Last Admin: 06/10/21 20:59 Dose: 1 puff Documented by: ODNTE Aspirin (Aspirin 81 Mg Tab.Chew) 81 mg PO DAILY [facility] Last Admin: 06/11/21 07:48 Dose: 81 mg Documented by: GREG Atorvastatin Calcium (Atorvastatin Calcium 80 Mg Tablet) 80 mg PO BEDTIME [facility] Last Admin: 06/10/21 20:38 Dose: 80 mg Documented by: DONTE Benzonatate (Benzonatate 100 Mg Capsule) 100 mg PO TID PRN PRN Reason: Cough Last Admin: 06/10/21 20:38 Dose: 100 mg Documented by: DONTE Benzonatate (Benzonatate 100 Mg Capsule) 100 mg PO TID PRN PRN Reason: Cough Dexamethasone (Dexamethasone 6 Mg Tablet) 6 mg PO DAILY [facility] Last Admin: 06/11/21 07:49 Dose: 6 mg Documented by: GREG Dextrose (Dextrose 50 % 25 Gm/50 Ml Vial) 25 gm IVPUSH Q15M PRN; Protocol PRN Reason: per Hypoglycemia Standing Ord. Enoxaparin Sodium (Enoxaparin Sodium 40 Mg/0.4 Ml Syringe) 40 mg SUBCUT Q24H [facility] Last Admin: 06/11/21 03:45 Dose: 40 mg Documented by: CHRISTIANO Famotidine (Famotidine 20 Mg Tablet) 20 mg PO BID [facility] Last Admin: 06/11/21 07:50 Dose: 20 mg Documented by: COTEMA Fluticasone/Vilanterol (Fluticasone/Vilanterol 100/25 Blst.W.Dev) 1 puff INHALE RDAILY [facility] Last Admin: 06/11/21 07:27 Dose: Not Given Documented by: BRIANA Non-Admin Reason: Patient Asleep Glucose (Glucose Gel 15 Gm Gel..Gram.) 15 gm PO Q15M PRN; Protocol PRN Reason: per Hypoglycemia Standing Ord. Insulin Glargine (Insulin Glargine,Hum.Rec.Anlog 100 Unit/Ml 10 Ml Vial) 30 unit SUBCUT DAILY [facility] Last Admin: 06/11/21 07:49 Dose: 30 unit Documented by: GREG Insulin Human Lispro (Insulin Lispro 100 Unit/Ml 3 Ml Vial) 0 unit SUBCUT QIDACHS [facility]; Protocol Last Admin: 06/11/21 11:32 Dose: 6 unit Documented by: LUANNEEMA Lisinopril (Lisinopril 10 Mg Tablet) 10 mg PO DAILY [facility]; Protocol Last Admin: 06/11/21 07:49 Dose: 10 mg Documented by: LUANNEEMA Melatonin (Melatonin 3 Mg Tablet) 6 mg PO BEDTIME PRN PRN Reason: Insomnia Metformin HCl (Metformin Hcl 1,000 Mg Tablet) 1,000 mg PO BIDWM [facility] Last Admin: 06/11/21 07:49 Dose: 1,000 mg Documented by: COTEMA Morphine Sulfate (Morphine Sulfate 4 Mg/Ml Cartridge) 1 mg IVPUSH Q4H PRN; Protocol PRN Reason: Pain, SOB Last Admin: 06/09/21 08:02 Dose: 1 mg Documented by: BRAYDEN Non-Formulary Medication (Empagliflozin [Jardiance]) 1 tab PO DAILY [facility] Pharmacy Consult (Consult Rx Perform Med Rec) 1 each MISCELLANE ONCE PRN PRN Reason: Consult order Senna (Sennosides 8.6 Mg Tablet) 17.2 mg PO BEDTIME PRN PRN Reason: Constipation Sodium Chloride (0.9 % Sodium Chloride Flush 3 Ml Syringe) 3 ml IVFLUSH QSHIFT [facility] Last Admin: 06/11/21 07:50 Dose: 3 ml Documented by: GREG Labs CBC & Chem 7: 06/09/21 07:33 06/09/21 07:33 Labs: Laboratory Results - last 24 hr 06/10/21 06/10/21 06/11/21 16:02 20:13 07:14 POC Glucose 237 H 283 H 206 H 06/11/21 11:14 POC Glucose 273 H Microbiology Microbiology Results: Microbiology 06/09/21 00:47 Blood Culture - Preliminary Blood - Venous No growth after 48 hours. 06/09/21 00:47 Blood Culture - Preliminary Blood - Venous No growth after 48 hours. Assessment and Plan (1) SARS-CoV-2 positive: Status: Acute (2) Type 2 diabetes mellitus: Status: Acute (3) HLD (hyperlipidemia): Status: Acute Assessment and Plan: 50-year-old female w/ acute hypoxic respiratoroy failure due to covid PNA, tested for covid 06/01, result on 06/03 Acute hypoxic resp failure Covid 19 PNA -continue O2 and wean as rené -IV steroid -I believe she's out of window for remdesevir efficancy, will check with ID -Sumptomatic cough treatment -robitussin and Tessalon for cough HTN--Lisinopril HLD--Lipitor Diabetes--Metformin, SSI, Lantus Possible home tomorrow with O2 DVT prophylaxis: Lovenox Code status: Full code Quality Stroke Does the patient have a stroke diagnosis?: No VTE Prior VTE?: No VTE Risk Level:: Medical - moderate - high VTE Device Contraindication: Treatment Not Indicated VTE Drug Contraindication: N/A - Med Ordered
[2021-06-11 16:00] LABS: Glucose, Whole Blood 236 mg/dL (60-115)
[2021-06-11] MEDS: Acetaminophen 325 MG TABLET 650 MG PO (16:43)
[2021-06-11] MEDS: Benzonatate 100 MG CAPSULE PO (16:43)
[2021-06-11] MEDS: guaiFEN/Codeine SF 200/20/10ML 10 ML LIQUID 5 ML PO (16:44)
[2021-06-11 19:54] LABS: Glucose, Whole Blood 264 mg/dL (60-115)
[2021-06-11] MEDS: Atorvastatin Calcium 80 MG TABLET PO (20:37)
[2021-06-12] VITALS (8 sets, daily range): BP systolic 109–138; BP diastolic 65–70; PULSE 51–67; RESP 20; TEMP 36.1–36.6; O2SAT 91–97
[2021-06-12] MEDS: Morphine Sulfate 4 MG/ML CARTRIDGE 1 MG IVPUSH (01:31)
[2021-06-12] MEDS: guaiFEN/Codeine SF 200/20/10ML 10 ML LIQUID 5 ML PO (01:33)
[2021-06-12] MEDS: Enoxaparin Sodium 40 MG/0.4 ML SYRINGE SUBCUT (04:34)
[2021-06-12 07:24] LABS: Glucose, Whole Blood 177 mg/dL (60-115)
[2021-06-12] MEDS: Fluticasone/Vilanterol 100/25 BLST.W.DEV 1 PUFF INHALE (08:06)
[2021-06-12] MEDS: lisinopriL 10 MG TABLET PO (08:20)
[2021-06-12] MEDS: 0.9 % Sodium Chloride Flush 3 ML SYRINGE IVFLUSH ×2 (08:20→17:12)
[2021-06-12] MEDS: Aspirin 81 MG TAB.CHEW PO (08:20)
[2021-06-12] MEDS: Insulin Glargine,Hum.rec.anlog 100 UNIT/ML 10 ML VIAL 30 UNIT SUBCUT (08:21)
[2021-06-12] MEDS: Famotidine 20 MG TABLET PO (08:21)
[2021-06-12] MEDS: Insulin Lispro 100 UNIT/ML 3 ML VIAL SUBCUT ×3 (08:21→17:12)
[2021-06-12] MEDS: dexAMETHasone 6 MG TABLET PO (08:21)
[2021-06-12] MEDS: metFORMIN HCl 1,000 MG TABLET 1000 MG PO ×2 (08:21→17:12)
--- NOTE | 2021-06-12 10:08 | P.PNIM_ITS ---
Subjective Subjective Date of Service: 06/12/21 Interval History: Seen in f/u for acute hypoxic respiratory failure due to covid, better, O2 improving, cough much better Review of Systems low grade fever overnight cough sob Physical Exam Vital Signs: Vital Signs: Last Vital Signs Temp 97.8 F 06/12/21 07:38 Pulse 56 06/12/21 08:20 Resp 20 06/12/21 07:38 BP 132/70 06/12/21 08:20 Pulse Ox 92 06/12/21 07:38 Oxygen Flow Rate 2 06/09/21 11:20 BMI result Body Mass Index 29.4 Const: Other: General: AO X 3, no acute distress Resp: CTA bilateral, no accessory muscle use CVS: S1,S2,RRR GI: +BS, NT, no distention Skin: No rash Neuro: motor grossly intact Psych: appropriate affect Objective Data Active Medications Acetaminophen (Acetaminophen 325 Mg Tablet) 650 mg PO Q6H PRN PRN Reason: Pain, Mild (Pain Scale 1-3) Last Admin: 06/11/21 16:43 Dose: 650 mg Documented by: GREG Albuterol Sulfate (Albuterol Sulfate 90 Mcg 8 Gm Inhaler) 1 puff INHALE Q4H PRN PRN Reason: RESPIRATORY DISTRESS Last Admin: 06/10/21 20:59 Dose: 1 puff Documented by: DONTE Aspirin (Aspirin 81 Mg Tab.Chew) 81 mg PO DAILY [facility] Last Admin: 06/12/21 08:20 Dose: 81 mg Documented by: PATTI Atorvastatin Calcium (Atorvastatin Calcium 80 Mg Tablet) 80 mg PO BEDTIME [facility] Last Admin: 06/11/21 20:37 Dose: 80 mg Documented by: BECCA Benzonatate (Benzonatate 100 Mg Capsule) 100 mg PO TID PRN PRN Reason: Cough Last Admin: 06/11/21 16:43 Dose: 100 mg Documented by: GREG Benzonatate (Benzonatate 100 Mg Capsule) 100 mg PO TID PRN PRN Reason: Cough Dexamethasone (Dexamethasone 6 Mg Tablet) 6 mg PO DAILY [facility] Last Admin: 06/12/21 08:21 Dose: 6 mg Documented by: PATTI Dextrose (Dextrose 50 % 25 Gm/50 Ml Vial) 25 gm IVPUSH Q15M PRN; Protocol PRN Reason: per Hypoglycemia Standing Ord. Enoxaparin Sodium (Enoxaparin Sodium 40 Mg/0.4 Ml Syringe) 40 mg SUBCUT Q24H [facility] Last Admin: 06/12/21 04:34 Dose: 40 mg Documented by: BECCA Famotidine (Famotidine 20 Mg Tablet) 20 mg PO BID [facility] Last Admin: 06/12/21 08:21 Dose: 20 mg Documented by: PATTI Fluticasone/Vilanterol (Fluticasone/Vilanterol 100/25 Blst.W.Dev) 1 puff INHALE RDAILY [facility] Last Admin: 06/12/21 08:06 Dose: 1 puff Documented by: ANY Glucose (Glucose Gel 15 Gm Gel..Gram.) 15 gm PO Q15M PRN; Protocol PRN Reason: per Hypoglycemia Standing Ord. Guaifenesin/Codeine Phosphate (Guaifen/Codeine Sf 200/20/10ml 10 Ml Liquid) 5 ml PO Q4H PRN PRN Reason: Cough Last Admin: 06/12/21 01:33 Dose: 5 ml Documented by: BECCA Insulin Glargine (Insulin Glargine,Hum.Rec.Anlog 100 Unit/Ml 10 Ml Vial) 30 unit SUBCUT DAILY [facility] Last Admin: 06/12/21 08:21 Dose: 30 unit Documented by: PATTI Insulin Human Lispro (Insulin Lispro 100 Unit/Ml 3 Ml Vial) 0 unit SUBCUT QIDACHS [facility]; Protocol Last Admin: 06/12/21 08:21 Dose: 2 unit Documented by: PATTI Lisinopril (Lisinopril 10 Mg Tablet) 10 mg PO DAILY [facility]; Protocol Last Admin: 06/12/21 08:20 Dose: 10 mg Documented by: PATTI Melatonin (Melatonin 3 Mg Tablet) 6 mg PO BEDTIME PRN PRN Reason: Insomnia Metformin HCl (Metformin Hcl 1,000 Mg Tablet) 1,000 mg PO BIDWM [facility] Last Admin: 06/12/21 08:21 Dose: 1,000 mg Documented by: PATTI Morphine Sulfate (Morphine Sulfate 4 Mg/Ml Cartridge) 1 mg IVPUSH Q4H PRN; Protocol PRN Reason: Pain, SOB Last Admin: 06/12/21 01:31 Dose: 1 mg Documented by: BECCA Non-Formulary Medication (Empagliflozin [Jardiance]) 1 tab PO DAILY [facility] Pharmacy Consult (Consult Rx Perform Med Rec) 1 each MISCELLANE ONCE PRN PRN Reason: Consult order Senna (Sennosides 8.6 Mg Tablet) 17.2 mg PO BEDTIME PRN PRN Reason: Constipation Sodium Chloride (0.9 % Sodium Chloride Flush 3 Ml Syringe) 3 ml IVFLUSH QSHIFT [facility] Last Admin: 06/12/21 08:20 Dose: 3 ml Documented by: PATTI Labs CBC & Chem 7: 06/09/21 07:33 06/09/21 07:33 Labs: Laboratory Results - last 24 hr 06/11/21 06/11/21 06/11/21 11:14 15:57 19:52 POC Glucose 273 H 236 H 264 H 06/12/21 07:20 POC Glucose 177 H Assessment and Plan (1) Type 2 diabetes mellitus: Status: Acute (2) Hypoxia: Status: Acute (3) SARS-CoV-2 positive: Status: Acute (4) HLD (hyperlipidemia): Status: Acute Assessment and Plan: 50-year-old female w/ acute hypoxic respiratoroy failure due to covid PNA, tested for covid 06/01, result on 06/03 Acute hypoxic resp failure Covid 19 PNA -continue O2 and wean as rené, presently on 1 L -IV steroid -No indication for remdesevir at this time -Sumptomatic cough treatment -robitussin and Tessalon for cough HTN--Lisinopril HLD--Lipitor Diabetes--Metformin, SSI, Lantus Possible home tomorrow with O2 DVT prophylaxis: Lovenox Code status: Full code Quality Stroke Does the patient have a stroke diagnosis?: No VTE Prior VTE?: No VTE Risk Level:: Medical - moderate - high VTE Device Contraindication: Treatment Not Indicated VTE Drug Contraindication: N/A - Med Ordered
[2021-06-12 11:48] LABS: Glucose, Whole Blood 198 mg/dL (60-115)
[2021-06-12 16:00] LABS: Glucose, Whole Blood 200 mg/dL (60-115)
--- NOTE | 2021-06-12 16:26 | P.DS_ITS ---
DS: Providers Provider Date of Service: 06/12/21 Date of admission: 06/09/21 03:15 Primary care physician: Maggy Gonsalves MD Consults: 06/10/21 12:09 Consult to Infectious Diseases Routine Consulting Provider: Maya Dumas Reason for consultation: covid ? need for remdesevir Has provider been notified: No DS: Diagnosis Discharge Diagnosis (1) Type 2 diabetes mellitus: Status: Acute (2) Hypoxia: Status: Acute (3) SARS-CoV-2 positive: Status: Acute (4) HLD (hyperlipidemia): Status: Acute DS: Summary Hospital Course Hospital Course: Patient was admitted due to acute hypoxic respriatory failure related to covid 19 and treated with oxygen, IV steroid, was not in beneficial window for remdesevir, She has singificantly improved but still dopps to activity and therefore has been assess for home oxygen and will need 2 liters with activity. She will complete 10 day course of dexamethasone, Time Spent with Patient Time attestation: Total time spent providing and/or coordinating discharge services: Discharge coordination time: Greater than 30 minutes Quality: Stroke Does the patient have a stroke diagnosis?: No Physical Exam Verdana 4l Vital Signs: Verdana 4d Verdana 4d Vital Signs: Verdana 4d Verdana 4Bd Last Vital Signs Verdana 4d End Lathe Operator New 4d End Lathe Operator New 4d Temp 96.9 F 06/12/21 15:13 End Lathe Operator New 4d Pulse 63 06/12/21 15:13 End Lathe Operator NewNew 4d Resp 20 06/12/21 15:13 BP 109/69 06/12/21 15:13 Pulse Ox 91 L 06/12/21 15:13 Oxygen Flow Rate 2 06/09/21 11:20 BMI result Body Mass Index 29.4 DS: Data Data Completed and Pending Labs on day of discharge: Laboratory Results - last 24 hr 06/11/21 06/12/21 06/12/21 19:52 07:20 11:44 POC Glucose 264 H 177 H 198 H 06/12/21 15:57 POC Glucose 200 H Preliminary micro results at discharge 06/09/21 00:47 Blood Culture - Preliminary Blood - Venous No growth after 48 hours. 06/09/21 00:47 Blood Culture - Preliminary Blood - Venous No growth after 48 hours. Discharge Plan Discharge Anticipated Discharge Date/Time: 06/12/21 15:48 Patient Disposition: Home, Self-Care Discharge Diagnosis: Hypoxia due to covid 19 Referrals: Maggy Gonsalves MD [Primary Care Provider] - 1 Week Discharge Medications: New codeine-guaifenesin 10-100 mg/5 mL Liquid 5 ml PO Q4H PRN (Reason: Cough) Qty: 50 RF: 0 dexamethasone [Decadron] 6 mg tablet 6 mg PO DAILY Qty: 6 RF: 0 Continued fluticasone propion-salmeterol [Advair Diskus] 250-50 mcg/dose blister with device 1 puff inhalation BID RF: 0 atorvastatin 80 mg tablet 1 tab PO DAILY RF: 0 aspirin 81 mg tablet,delayed release (DR/EC) 1 tab PO DAILY RF: 0 metformin 1,000 mg tablet 1 tab PO BID RF: 0 lisinopril 10 mg tablet 1 tab PO DAILY RF: 0 albuterol sulfate [ProAir HFA] 90 mcg/actuation HFA aerosol inhaler 1 inh inhalation Q4H RF: 0 Tresiba FlexTouch U-200 200 unit/mL (3 mL) insulin pen 108 unit subcut DAILY RF: 0 Jardiance 25 mg tablet 1 tab PO DAILY RF: 0 Discharge Orders: Discharge Order (Routine); Ordered 06/12/21 Ordered By: Yg Tony Diet: advance to usual diet Activity on Discharge: As tolerated Stand Alone Forms: Patient Portal Discharge page Care Plan Goals: Full recovery from covid Health Concerns: covid with low oxygen level Plan of Treatment: Use oxygen as directed, follow up with your Docot in a week, Take Dexamethasone as directed Robitussin for cough CDC Guidelines for home isolation: - Stay away from others - Limit contact with pets and animals: If you must care for a pet, wash your hands before and after interacting with them - Wear a mask if you are sick - Cover your mouth and nose with a tissue when you cough or sneeze. Dispose of tissues in a lined trash can and wash your hands immediately with soap and water for at least 20 seconds. If soap and water are not available, clean hands with alcohol-based hand turfgrass management professor that contains at least 60% alcohol. - Clean your hands often with soap and water for at least 20 seconds - Avoid touching your eyes, nose and mouth with unwashed hands - Do not share dishes, drinking glasses, cups, eating utensils, towels, or bedding with other people in your home. After using these items, wash them thoroughly with soap and water or put in the electronics specialist. - Clean high-touch surfaces in your isolation area ( sick room and bathroom) every day; let a caregiver clean and disinfect high-touch surfaces in other areas of the home. Clean the area or item with soap and water or another detergent if it is dirty. Then, use a household disinfectant. Seek medical attention, but call first: - Seek medical care right away if your illness is worsening (for example, if you have difficulty breathing). - Call your doctor before going in: Before going to the doctor's office or emergency room, call ahead and tell them your symptoms. They will tell you what to do. - If possible, put on a facemask before you enter the building. If you can't put on a facemask, try to keep a safe distance from other people (at least 6 feet away). This will help protect the people in the office or waiting room. - Follow care instructions from your healthcare provider and local health department: Your local health authorities will give instructions on checking your symptoms and reporting information. Emergency warning signs for COVID-19: - Difficulty breathing or shortness of breath - Persistent pain or pressure in the chest - New confusion or inability to arouse - Bluish lips or face Additional Instructions: - [] Assessment: As above
--- NOTE | 2021-06-12 16:41 | W.PM.IDCN ---
History of Present Illness Data of Consult Service Date: 06/12/21 Requesting physician: Yg Tony Primary Care Provider: Maggy Gonsalves MD [facility] Reason for consult: shortness of breath She reports symptoms for 10 days and diagnosed COVID seven days ago. She has shortness of breath,cough and fatigue She has mild hypoxia on admission,now better Review of Systems Review of Systems: Yes all other systems are reviewed and are negative [facility] Past Medical History Medical History HLD (hyperlipidemia) Hypertension Type 2 diabetes mellitus Family History Family history: reviewed and not pertinent Social History Social History Patient Tobacco Use Status: Never used Tobacco service: No Meds Allergies Allergy/AdvReac Type Severity Reaction Status Date / Time No Known Allergies Allergy Verified 06/09/21 00:10 Active Medications: Current Medications Acetaminophen (Acetaminophen 325 Mg Tablet) 650 mg PO Q6H PRN PRN Reason: Pain, Mild (Pain Scale 1-3) Last Admin: 06/11/21 16:43 Dose: 650 mg Documented by: Albuterol Sulfate (Albuterol Sulfate 90 Mcg 8 Gm Inhaler) 1 puff INHALE Q4H PRN PRN Reason: RESPIRATORY DISTRESS Last Admin: 06/10/21 20:59 Dose: 1 puff Documented by: Aspirin (Aspirin 81 Mg Tab.Chew) 81 mg PO DAILY [facility] Last Admin: 06/12/21 08:20 Dose: 81 mg Documented by: Atorvastatin Calcium (Atorvastatin Calcium 80 Mg Tablet) 80 mg PO BEDTIME [facility] Last Admin: 06/11/21 20:37 Dose: 80 mg Documented by: Benzonatate (Benzonatate 100 Mg Capsule) 100 mg PO TID PRN PRN Reason: Cough Last Admin: 06/11/21 16:43 Dose: 100 mg Documented by: Benzonatate (Benzonatate 100 Mg Capsule) 100 mg PO TID PRN PRN Reason: Cough Dexamethasone (Dexamethasone 6 Mg Tablet) 6 mg PO DAILY [facility] Last Admin: 06/12/21 08:21 Dose: 6 mg Documented by: Dextrose (Dextrose 50 % 25 Gm/50 Ml Vial) 25 gm IVPUSH Q15M PRN; Protocol PRN Reason: per Hypoglycemia Standing Ord. Enoxaparin Sodium (Enoxaparin Sodium 40 Mg/0.4 Ml Syringe) 40 mg SUBCUT Q24H [facility] Last Admin: 06/12/21 04:34 Dose: 40 mg Documented by: Famotidine (Famotidine 20 Mg Tablet) 20 mg PO BID [facility] Last Admin: 06/12/21 08:21 Dose: 20 mg Documented by: Fluticasone/Vilanterol (Fluticasone/Vilanterol 100/25 Blst.W.Dev) 1 puff INHALE RDAILY [facility] Last Admin: 06/12/21 08:06 Dose: 1 puff Documented by: Glucose (Glucose Gel 15 Gm Gel..Gram.) 15 gm PO Q15M PRN; Protocol PRN Reason: per Hypoglycemia Standing Ord. Guaifenesin/Codeine Phosphate (Guaifen/Codeine Sf 200/20/10ml 10 Ml Liquid) 5 ml PO Q4H PRN PRN Reason: Cough Last Admin: 06/12/21 01:33 Dose: 5 ml Documented by: Insulin Glargine (Insulin Glargine,Hum.Rec.Anlog 100 Unit/Ml 10 Ml Vial) 30 unit SUBCUT DAILY [facility] Last Admin: 06/12/21 08:21 Dose: 30 unit Documented by: Insulin Human Lispro (Insulin Lispro 100 Unit/Ml 3 Ml Vial) 0 unit SUBCUT QIDACHS [facility]; Protocol Last Admin: 06/12/21 12:11 Dose: 2 unit Documented by: Lisinopril (Lisinopril 10 Mg Tablet) 10 mg PO DAILY [facility]; Protocol Last Admin: 06/12/21 08:20 Dose: 10 mg Documented by: Melatonin (Melatonin 3 Mg Tablet) 6 mg PO BEDTIME PRN PRN Reason: Insomnia Metformin HCl (Metformin Hcl 1,000 Mg Tablet) 1,000 mg PO BIDWM [facility] Last Admin: 06/12/21 08:21 Dose: 1,000 mg Documented by: Morphine Sulfate (Morphine Sulfate 4 Mg/Ml Cartridge) 1 mg IVPUSH Q4H PRN; Protocol PRN Reason: Pain, SOB Last Admin: 06/12/21 01:31 Dose: 1 mg Documented by: Non-Formulary Medication (Empagliflozin [Jardiance]) 1 tab PO DAILY [facility] Pharmacy Consult (Consult Rx Perform Med Rec) 1 each MISCELLANE ONCE PRN PRN Reason: Consult order Senna (Sennosides 8.6 Mg Tablet) 17.2 mg PO BEDTIME PRN PRN Reason: Constipation Sodium Chloride (0.9 % Sodium Chloride Flush 3 Ml Syringe) 3 ml [facility] [place] Last Admin: 06/12/21 08:20 Dose: 3 ml Documented by: Home Medications Medication Instructions Recorded Confirmed Last Taken Type albuterol sulfate 90 mcg/actuation 1 inh INHALATION Q4H 06/09/21 06/09/21 06/08/21 History aerosol inhaler (ProAir HFA) aspirin 81 mg tablet,delayed 1 tab PO DAILY 06/09/21 06/09/21 06/08/21 History release atorvastatin 80 mg tablet 1 tab PO DAILY 06/09/21 06/09/21 06/08/21 History empagliflozin 25 mg tablet 1 tab PO DAILY 06/09/21 06/09/21 06/08/21 History (Jardiance) fluticasone 250 mcg-salmeterol 50 1 puff INHALATION BID 06/09/21 06/09/21 06/08/21 History mcg/dose blistr powdr for inhalation (Advair Diskus) insulin degludec 200 unit/mL (3 108 unit SUBCUT DAILY 06/09/21 06/09/21 06/08/21 History mL) subcutaneous pen (Tresiba FlexTouch U-200 insulin) lisinopril 10 mg tablet 1 tab PO DAILY 06/09/21 06/09/21 06/08/21 History metformin 1,000 mg tablet 1 tab PO BID 06/09/21 06/09/21 06/08/21 History Physical Exam Vital Signs: Vital Signs: Last Vital Signs Temp 96.9 F 06/12/21 15:13 Pulse 63 06/12/21 15:13 Resp 20 06/12/21 15:13 BP 109/69 06/12/21 15:13 Pulse Ox 91 L 06/12/21 15:13 Oxygen Flow Rate 2 06/09/21 11:20 BMI result Body Mass Index 29.4 Const: General: cooperative Eyes: General: appearance normal, both eyes and all related structures Pupils: Equal, round and reactive pupils present Resp: Effort & Inspection: able to speak in complete sentences Cardio: Rate: regular rate Rhythm: regular rhythm GI: Palpation (GI): Soft to palpation and nontender Neuro: Cranial nerves: Yes Equal, round and reactive pupils present Extrem: General: Yes normal to inspection Results Labs CBC & Chem 7: 06/09/21 07:33 06/09/21 07:33 Microbiology Microbiology Results: Microbiology 06/09/21 00:47 Blood - Venous Blood Culture - Preliminary No growth after 48 hours. 06/09/21 00:47 Blood - Venous Blood Culture - Preliminary No growth after 48 hours. Assessment and Plan (1) Hypoxia: Status: Acute She is breathing comfortably and not on oxygen when seen She has symptoms ten days (2) SARS-CoV-2 positive: Status: Acute Continue Dexamethasone for 10 d total No Remdesivir Oxygen if needed
== END 2021-06-12 05:00 | disposition home or self-care (01) | DRG 137 ==
LOC: HO.ED 06-09 03:19 → HO.EDOVER 06-09 04:13 → HO.IMC 06-09 09:55
PROVIDERS: Admitting Provider Hospitalist; Emergency Provider Emergency Medicine; PCP Family Medicine; Visit Provider Internal Medicine
DX: U07.1 COVID-19 (principal); J96.01 Acute respiratory failure with hypoxia; I10 Essential (primary) hypertension; E11.9 Type 2 diabetes mellitus without complications; E78.5 Hyperlipidemia, unspecified; Z79.82 Long term (current) use of aspirin; Z79.51 Long term (current) use of inhaled steroids; Z79.4 Long term (current) use of insulin; Z79.899 Other long term (current) drug therapy
CPT/HCPCS: 36415; 71275; 80048; 80076; 81001; 82947; 83605; 83880; 84484; 85025; 85379; 85610; 87040; 87635; 93005; 99285; 99499; J1100; J1650; J2270; J2405; J8540; Q9967

== ENCOUNTER → 2022-07-06 10:35 | Outpatient (REF) | payer OTHER, SELFPAY | LOC: HO.SL 10:35 | PROVIDERS: Visit Provider Internal Medicine Pulmonary Disease | DX: G47.33 Obstructive sleep apnea (adult) (pediatric) (principal) | CPT/HCPCS: 95806 ==